=== PATIENT | male | born 1960 | race African-American/Black ===

== ENCOUNTER 2017-01-15 19:15 | Emergency (ER) | payer BC, MEDICARE ==
[~2017-01-15 19:15] MED LIST: ALBU8I INH; LISI10TA3 PO; METF500T PO; NORC10TA2 PO; SIMV40TA PO
[2017-01-15 19:26] VITALS: BP 175/84; PULSE 105; RESP 15; TEMP 98.4; O2SAT 98
[2017-01-15] MEDS ORDERED: BUPIVACAINE HCL PF 0.5% 30 ML VIAL INFIL ONE (21:15)
[2017-01-15] MEDS ORDERED: TETANUS/DIPHTHERIA TOXOID ADULT 0.5 ML VIAL IM ONE (21:15)
--- NOTE | 2017-01-15 21:16 | PD ---
HPI Chief Complaint: Injury Time Seen by Provider: 21:12 Travel History International Travel<30 days: No Contact w/Intl Traveler<30days: No Traveled to known affect area: No History of Present Illness HPI 56-year-old pjkju-[place]je-gl[place]tomg black male presents emergency Department with a injury to his right middle finger. He states that prior to arrival he had his finger accidentally closed in a door. The patient sustained at guillotine type laceration to the distal phalanx. He has not had a tender shot over 5 years. He states the pain is severe. He rates his pain a 10/10. No other injuries. History of vision impairment and diabetes. PFSH Past Medical History Narrative Medical Diabetes, hypertension, hypercholesterolemia, depression, vision loss, chronic pain Cardiovascular Problems: Yes (hypertension) High Cholesterol: Yes Diabetes: Yes Patient Takes Glucophage: Yes Hypertension: Yes Tetanus Vaccination: > 5 Years Past Surgical History Narrative Surgical Eye surgery Social History Alcohol Use: Yes Tobacco Use: No Allergies-Medications (Allergen,Severity, Reaction): Coded Allergies: No Known Allergies (Unverified , 01/15/17) Reported Meds & Prescriptions Reported Meds & Active Scripts Active Lortab (Hydrocodone-Acetaminophen) 5-325 Mg Tab 1 Tab PO Q4H PRN Cephalexin 500 Mg Cap 500 Mg PO Q6H Simvastatin 40 Mg Tab 40 Mg PO HS Lisinopril 10 Mg Tab 10 Mg PO DAILY Metformin (Metformin HCl) 500 Mg Tab 500 Mg PO BIDPC With meals Review of Systems Except as stated in HPI: all other systems reviewed are Neg Musculoskeletal: Positive: Arthralgias, Edema, Pain, No: Myalgias, Limited ROM , Weakness, Cramping Neurologic: No: Weakness, Paresthesia Physical Exam Narrative GENERAL: This is a well-nourished, well-developed patient, in no apparent distress. SKIN: No rashes, ecchymoses or lesions. Warm and dry. HEAD: Atraumatic. Normocephalic. EYES: Patient is vision impaired. EARS: Clear NOSE: Nasal turbinates appear normal. THROAT: Mucosa pink and moist. Airway patent. NECK: Trachea midline. supple, moves head freely. LUNGS: Clear to auscultation. CV: Regular in rhythm. ABDOMEN: Soft nontender. EXT: No clubbing cyanosis. Examination of the right hand reveals a guillotine type laceration to the distal phalanx of the middle finger. The laceration goes through the nail and the nail bed. He has intact gross sensation. No involvement of the DIP. This is not a complete laceration. He has a volar pedicle. This is approximately a 50% partial amputation laceration Data Data Last Documented VS Vital Signs Date Time Temp Pulse Resp B/P Pulse Ox O2 Delivery O2 Flow Rate FiO2 01/15/17 19:26 98.4 105 15 175/84 98 Room Air Orders Bupivacaine Pf 0.5% Inj (Marcaine Pf 0.5 (01/15/17 21:15) Tetanus/Diphtheria Tox Adult (Tetanus/Di (01/15/17 21:15) Finger (Rak0whf) (01/15/17 21:11) Ice/Cold Pack (01/15/17 21:11) Iv Access Insert/Monitor (01/15/17 21:53) Cefazolin 2 Gm Premix (Ancef 2 Gm Premix (01/15/17 22:00) Povidone Iodine 10% Oint (Betadine 10% O (01/15/17 22:45) MDM Medical Decision Making Medical Screen Exam Complete: Yes Emergency Medical Condition: Yes Medical Record Reviewed: Yes Interpretation(s) Last 24 hours Impressions Finger X-Ray 01/15/172110 Signed Impressions: Service Date/Time: Friday, January 15, 2017 21:26 - CONCLUSION: Mildly displaced open fracture involving the distal tuft of the long finger. Leland Ordoñez MD Differential Diagnosis MDM: High Differential diagnoses: Fracture, sprain, strain, dislocation, contusion, neurovascular injury Narrative Course Patient's tetanus status updated. Patient's given a digital block with Marcaine 0.5%. IV access is obtained. Patient's given 2 g of Ancef IV. Patient is given Lortab 5 mg by mouth at time of discharge. The case has been discussed with Dr. Martinez the hand surgeon. He agrees with the treatment plan of follow-up. He has visualized the x-rays. Patient's laceration is close to sutures. He is placed in a large bulky dressing and a splint is applied. Procedures Procedure Narrative LACERATION LOCATION: Right middle finger distal phalanx through the nail bed LENGTH: 2 center meters NUMBER OF STITCHES/BETSY: 8 REPAIR: The area of the laceration was prepped with Betadine and sterilely draped. The laceration was infiltrated with 0.5% Marcaine digital block. The wound was copiously irrigated and explored without evidence of foreign body, tendon injury or neurovascular injury. The nail is sharply debrided. The nail bed is repaired using 5-0 Vicryl sutures. The skin was closed using 5-0 proline. This was a single layer repair. Betadine ointment, Adaptic, Telfa, gauze followed by Coban and, aluminum finger splint and Coban was applied. The patient was advised to keep the dressing clean and dry. Patient tolerated the procedure well. Diagnosis Primary Impression: partial fingertip amputation right middle finger Referrals: Donna Martinez MD 1 week Patient Instructions: General Instructions, Narcotic given in the ED Departure Forms: Tests/Procedures, Work Release Special Instructions: No work 4 days. Additional Instructions: Rest. Strict elevation above the heart at all times. Keep clean and dry. Do not remove the dressing. Keflex and Lortab.. Sutures out in 12-14 days. Follow-up with Dr. Martinez the hand surgeon. Call the office in the morning for an appointment next week Return to the ER for any problems. Med/Other Pt SpecificInfo: Prescription(s) given, Wound Care Scripts Hydrocodone-Acetaminophen (Lortab)5-325 Mg Tab1 Tab PO Q4H PRN (PAIN) #12 TAB Prov:Isaac Miller MD 01/15/17 Cephalexin 500 Mg [id number] Mg PO Q6H #28 CAP Prov:Isaac Miller MD 01/15/17 Disposition: 01 DISCHARGE HOME Condition: Stable Daniel Loja Jan 15, 2017 21:16
--- NOTE | 2017-01-15 21:41 | RADRPT ---
EXAM DATE/TIME: 01/15/2017 21:26 [facility] COMPARISON: No previous studies available for comparison. INDICATIONS : Patient slammed right 3rd digit in door today MEDICAL HISTORY : None. SURGICAL HISTORY : None. ENCOUNTER: Initial ACUITY: 1 day PAIN SCORE: 3/10 LOCATION: Right distal 3rd digit FINDINGS: Mildly displaced distal tuft fracture seen of the long finger. There is an associated deep soft tissu e laceration. CONCLUSION: Mildly displaced open fracture involving the distal tuft of the long finger. Leland Ordoñez MD on January 15, 2017 at 21:38 Board Certified Radiologist. This report was verified electronically.
[2017-01-15] MEDS ORDERED: HYDR-3533 PO (21:55)
[2017-01-15] MEDS ORDERED: CEPH500C PO (21:55)
[2017-01-15] MEDS ORDERED: ceFAZolin 2 GM PREMIX 50 ML IV ONE (22:00)
[2017-01-15] MEDS ORDERED: POVIDONE IODINE 10% OINT 30 GM TUBE TOPICAL ONE (22:45)
[2017-01-15] MEDS ORDERED: ACETAMINOPHEN/HYDROcodone 325 MG/5 MG TAB PO ONE (23:00)
== END 2017-01-16 23:15 | disposition home or self-care (01) ==
LOC: NEPK 19:15
DX: S68.122A Partial traumatic metacarpophalangeal amputation of right middle finger, initial encounter (principal); H54.7 Unspecified visual loss; I10 Essential (primary) hypertension; W23.1XXA Caught, crushed, jammed, or pinched between stationary objects, initial encounter; Z23 Encounter for immunization
CPT/HCPCS: 12001; 73140; 90471; 90714; 96374; 99284; J0690

== ENCOUNTER 2017-06-12 09:50 | Emergency (ER) | payer BC, MEDICARE ==
[~2017-06-12] VITALS: Ht 177.8 cm; Wt 113.0 kg
[~2017-06-12 09:50] MED LIST changes: -ALBU8I INH; +IBUP1TAB7 PO; -NORC10TA2 PO
[2017-06-12 09:55] VITALS: BP 159/94; PULSE 111; RESP 18; TEMP 98.2; O2SAT 96
[2017-06-12] MEDS ORDERED: SODIUM CHLOR 0.9% 1000 ML INJ 1,000 ML IV ONE ×2 (10:27→10:57)
[2017-06-12] MEDS ORDERED: SODIUM CHLORIDE 0.9% FLUSH 10 ML FLUSH IVF PRN (10:30)
--- NOTE | 2017-06-12 10:40 | PD ---
HPI Chief Complaint: Dizziness Time Seen by Provider: 10:14 Travel History International Travel<30 days: No Contact w/Intl Traveler<30days: No Traveled to known affect area: No History of Present Illness HPI The patient is a 56-year-old [place]ak[place] male who presents emergency department for lightheadedness and dizziness. The patient does have a history of hypertension, hyperlipidemia, and xct-[id number]-[id number] diabetes. The patient is run out of most of his medications including lisinopril and simvastatin, has been taking his metformin every "once in a while "for his elevated blood sugars. The patient has an appointment next week with a new physician, Dr. Jacinto. The patient complains of lightheadedness and dizziness , intermittent, sometimes worse with standing, as well as complaints of polyuria. The patient does complain of some generalized weakness, denies any chest pain or shortness of breath. Symptoms are moderate, possibly exacerbated by noncompliance any history of diabetes, and there are no current alleviating factors. PFSH Past Medical History Cardiovascular Problems: Yes (hypertension) High Cholesterol: Yes Diabetes: Yes Hypertension: Yes Social History Alcohol Use: Yes Tobacco Use: No Allergies-Medications (Allergen,Severity, Reaction): Coded Allergies: No Known Allergies (Unverified Adverse Reaction, Unknown, 06/12/17) Reported Meds & Prescriptions Reported Meds & Active Scripts Active Ibuprofen 800 Mg Tab 800 Mg PO Q8H PRN Simvastatin 40 Mg Tab 40 Mg PO HS Lisinopril 10 Mg Tab 10 Mg PO DAILY Metformin (Metformin HCl) 500 Mg Tab 500 Mg PO BIDPC With meals Review of Systems Except as stated in HPI: all other systems reviewed are Neg General / Constitutional: No: Fever Eyes: No: Blurred Vision HENT: Positive: Lightheadedness, No: Headaches Cardiovascular: No: Chest Pain or Discomfort Respiratory: No: Shortness of Breath Gastrointestinal: No: Nausea, Vomiting, Abdominal Pain Musculoskeletal: No: Weakness Neurologic: Positive: Dizziness Physical Exam Narrative GENERAL: Awake, alert, pleasant 56-year-old male who appears his stated age is in no acute respiratory distress. SKIN: Focused skin assessment warm/dry. HEAD: Atraumatic. Normocephalic. EYES: No visible left eye. Wearing glasses. ENT: No nasal bleeding or discharge. Dry mucous membranes. NECK: Trachea midline. No JVD. CARDIOVASCULAR: Regular rate and rhythm. No murmur appreciated. RESPIRATORY: No accessory muscle use. Clear to auscultation. Breath sounds equal bilaterally. GASTROINTESTINAL: Abdomen soft, non-tender, nondistended. No rebound tenderness. MUSCULOSKELETAL: No obvious deformities. No clubbing. No cyanosis. No edema. NEUROLOGICAL: Awake and alert. No obvious cranial nerve deficits. Motor grossly within normal limits. Normal speech. PSYCHIATRIC: Appropriate mood and affect; insight and judgment normal. Data Data Last Documented VS Vital Signs Date Time Temp Pulse Resp B/P (MAP) Pulse Ox O2 Delivery O2 Flow Rate FiO2 06/12/17 12:49 103 21 209/114 (145) 98 Room Air 06/12/17 09:55 98.2 Orders Orders Electrocardiogram (06/12/17 10:27) Complete Blood Count With Diff (06/12/17 10:27) Comprehensive Metabolic Panel (06/12/17 10:27) Beta Hydroxybutyrate (Acetone) (06/12/17 10:27) Urinalysis - C+S If Indicated (06/12/17 10:27) Blood Gas Venous (Vbg) (06/12/17 10:27) Blood Glucose (06/12/17 10:27) Blood Glucose (06/12/17 11:27) Ecg Monitoring (06/12/17 10:27) Iv Access Insert/Monitor (06/12/17 10:27) Oximetry (06/12/17 10:27) NPO (06/12/17 10:27) Sodium Chlor 0.9% 1000 Ml Inj (Ns 1000 M (06/12/17 10:27) Sodium Chlor 0.9% 1000 Ml Inj (Ns 1000 M (06/12/17 10:57) Sodium Chloride 0.9% Flush (Ns Flush) (06/12/17 10:30) Troponin I (06/12/17 10:27) Insulin Aspart Inj (Novolog Inj) (06/12/17 10:45) Insulin Human Regular Inj (Novolin R Inj (06/12/17 10:45) Lisinopril (Prinivil) (06/12/17 13:00) Labs Laboratory Tests Test 06/12/17 10:45 06/12/17 11:55 White Blood Count 7.8 TH/MM3 Red Blood Count 5.65 MIL/MM3 Hemoglobin 16.2 GM/DL Hematocrit 49.7 % Mean Corpuscular Volume 88.0 FL Mean Corpuscular Hemoglobin 28.7 PG Mean Corpuscular Hemoglobin Concent 32.6 % Red Cell Distribution Width 14.0 % Platelet Count 187 TH/MM3 Mean Platelet Volume 9.2 FL Neutrophils (%) (Auto) 72.2 % Lymphocytes (%) (Auto) 21.7 % Monocytes (%) (Auto) 5.2 % Eosinophils (%) (Auto) 0.4 % Basophils (%) (Auto) 0.5 % Neutrophils # (Auto) 5.7 TH/MM3 Lymphocytes # (Auto) 1.7 TH/MM3 Monocytes # (Auto) 0.4 TH/MM3 Eosinophils # (Auto) 0.0 TH/MM3 Basophils # (Auto) 0.0 TH/MM3 CBC Comment DIFF FINAL Differential Comment Urine Color LIGHT-YELLOW Urine Turbidity CLEAR Urine pH 5.5 Urine Specific [place] 1.033 Urine Protein NEG mg/dL Urine Glucose (UA) 1000 mg/dL Urine Ketones 10 mg/dL Urine Occult Blood NEG Urine Nitrite NEG Urine Bilirubin NEG Urine Urobilinogen LESS THAN 2.0 MG/DL Urine Leukocyte Esterase NEG Urine WBC LESS THAN 1 /hpf Urine Mucus FEW /lpf Microscopic Urinalysis Comment CULT NOT INDICATED Blood Gas Puncture Site CENTRAL LINE Blood Gas Patient Temperature 98.6 Venous Blood pH 7.38 Venous Blood Partial Pressure CO2 44 mmHg Venous Blood Partial Pressure O2 48 mmHg Venous Blood HCO3 26 mmol/L Venous Blood Oxygen Saturation 75 % Venous Blood Oxygen Content 17.5 Vol % Venous Blood Base Excess 1.0 mmol/L Blood Gas Inspired Oxygen 21 % Blood Urea Nitrogen 18 MG/DL Creatinine 1.08 MG/DL Random Glucose 383 MG/DL Total Protein 7.7 GM/DL Albumin 3.6 GM/DL Calcium Level 9.2 MG/DL Alkaline Phosphatase 97 U/L Aspartate Amino Transf (AST/SGOT) 26 U/L Alanine Aminotransferase (ALT/SGPT) 58 U/L Total Bilirubin 0.5 MG/DL Sodium Level 133 MEQ/L Potassium Level 4.8 MEQ/L Chloride Level 99 MEQ/L Carbon Dioxide Level 23.7 MEQ/L Anion Gap 10 MEQ/L Estimat Glomerular Filtration Rate 86 ML/MIN Troponin I LESS THAN 0.02 NG/ML B-Hydroxybutyrate 1.00 MMOL/L MDM Medical Decision Making Medical Screen Exam Complete: Yes Emergency Medical Condition: Yes Medical Record Reviewed: Yes Interpretation(s) EKG reveals normal sinus rhythm with a rate of 96. Nonspecific ST-T wave changes. Laboratory Tests Test 06/12/17 10:45 06/12/17 11:55 White Blood Count 7.8 TH/MM3 Red Blood Count 5.65 MIL/MM3 Hemoglobin 16.2 GM/DL Hematocrit 49.7 % Mean Corpuscular Volume 88.0 FL Mean Corpuscular Hemoglobin 28.7 PG Mean Corpuscular Hemoglobin Concent 32.6 % Red Cell Distribution Width 14.0 % Platelet Count 187 TH/MM3 Mean Platelet Volume 9.2 FL Neutrophils (%) (Auto) 72.2 % Lymphocytes (%) (Auto) 21.7 % Monocytes (%) (Auto) 5.2 % Eosinophils (%) (Auto) 0.4 % Basophils (%) (Auto) 0.5 % Neutrophils # (Auto) 5.7 TH/MM3 Lymphocytes # (Auto) 1.7 TH/MM3 Monocytes # (Auto) 0.4 TH/MM3 Eosinophils # (Auto) 0.0 TH/MM3 Basophils # (Auto) 0.0 TH/MM3 CBC Comment DIFF FINAL Differential Comment Urine Color LIGHT-YELLOW Urine Turbidity CLEAR Urine pH 5.5 Urine Specific [place] 1.033 Urine Protein NEG mg/dL Urine Glucose (UA) 1000 mg/dL Urine Ketones 10 mg/dL Urine Occult Blood NEG Urine Nitrite NEG Urine Bilirubin NEG Urine Urobilinogen LESS THAN 2.0 MG/DL Urine Leukocyte Esterase NEG Urine WBC LESS THAN 1 /hpf Urine Mucus FEW /lpf Microscopic Urinalysis Comment CULT NOT INDICATED Blood Gas Puncture Site CENTRAL LINE Blood Gas Patient Temperature 98.6 Venous Blood pH 7.38 Venous Blood Partial Pressure CO2 44 mmHg Venous Blood Partial Pressure O2 48 mmHg Venous Blood HCO3 26 mmol/L Venous Blood Oxygen Saturation 75 % Venous Blood Oxygen Content 17.5 Vol % Venous Blood Base Excess 1.0 mmol/L Blood Gas Inspired Oxygen 21 % Blood Urea Nitrogen 18 MG/DL Creatinine 1.08 MG/DL Random Glucose 383 MG/DL Total Protein 7.7 GM/DL Albumin 3.6 GM/DL Calcium Level 9.2 MG/DL Alkaline Phosphatase 97 U/L Aspartate Amino Transf (AST/SGOT) 26 U/L Alanine Aminotransferase (ALT/SGPT) 58 U/L Total Bilirubin 0.5 MG/DL Sodium Level 133 MEQ/L Potassium Level 4.8 MEQ/L Chloride Level 99 MEQ/L Carbon Dioxide Level 23.7 MEQ/L Anion Gap 10 MEQ/L Estimat Glomerular Filtration Rate 86 ML/MIN Troponin I LESS THAN 0.02 NG/ML B-Hydroxybutyrate 1.00 MMOL/L Differential Diagnosis Differential diagnosis includes DKA, hyperglycemia, dehydration, electrolyte abnormality, noncompliance, hypertension, hypertensive urgency, hypertensive emergency. Narrative Course IV was established, labs are drawn and sent, and the patient was placed on cardiac telemetry monitoring and continuous pulse oximetry monitoring. EKG was ordered and interpreted. The patient was administered 2 L of IV fluids. VBG was obtained. VBG reveals pH is 7.38, no evidence of acidosis. The patient's blood sugar initially was in the 500s, he received IV insulin and regular insulin subcutaneously. The patient's LFTs and BUN/creatinine are unremarkable. Beta hydroxy was 1.0. Anion gap is normal. The patient is not in DKA. The patient's symptoms did improve. He will be discharged on his lisinopril, simvastatin, and metformin. He is advised to follow-up with his primary physician and return if symptoms worsen or progress. Diagnosis Primary Impression: Hyperglycemia Additional Impressions: Dehydration Hypertension Qualified Codes: I10 - Essential (primary) hypertension Patient Instructions: General Instructions Additional Instructions: Please provide the patient a copy of his labs at discharge. Follow-up with your primary physician. Return if symptoms worsen or progress. Med/Other Pt SpecificInfo: Prescription(s) given Scripts Simvastatin (Simvastatin) 40 Mg Tab 40 MG PO HS for Cholesterol Management, #30 TAB 5 Refills Prov: Micky Morgan MD 06/12/17 Lisinopril (Lisinopril) 10 Mg Tab 10 MG PO DAILY, #30 TAB 5 Refills Prov: Micky Morgan MD 06/12/17 Metformin (Metformin) 500 Mg Tab 500 MG PO BIDPC for Blood Sugar Management, #60 TAB 5 Refills With meals Prov: Micky Morgan MD 06/12/17 Disposition: 01 DISCHARGE HOME Condition: Stable Micky Morgan MD Jun 12, 2017 10:40
[2017-06-12] MEDS ORDERED: INSULIN HUMAN REGULAR 1,000 UNITS/10 ML VIAL IV PUSH ONE (10:45)
[2017-06-12] MEDS ORDERED: INSULIN ASPART 1,000 UNITS/10 ML VIAL SQ ONE (10:45)
[2017-06-12 10:53] LABS: BLOOD GAS VENOUS HCO3 26 mmol/L (22-26); BLOOD GAS VENOUS O2 CONTENT 17.5 Vol % (9.0-17.0); BLOOD GAS VENOUS O2 HGB SAT 75 % (70-76); BLOOD GAS VENOUS PCO2 44 mmHg (44-48); BLOOD GAS VENOUS PO2 48 mmHg (35-40); BLOOD GAS VENOUS pH 7.38 (7.360-7.400); CRITICAL VALUE NO; DRAW SITE CENTRAL LINE; FIO2 21 %; STAT YES; TEMP CORR TO 98.6
[2017-06-12 11:04] LABS: AUTOMATED NEUTROPHIL # 5.7 TH/MM3 (1.8-7.7); BASOPHIL % 0.5 % (0.0-2.0); EOSINOPHIL % 0.4 % (0.0-4.0); HEMATOCRIT 49.7 % (39.0-51.0); HEMO FLAGS DIFF FINAL; LYMPH % 21.7 % (9.0-44.0); LYMPHOCYTE # 1.7 TH/MM3 (1.0-4.8); MEAN CORPUSCULAR HEMOGLOBIN 28.7 PG (27.0-34.0); MEAN CORPUSCULAR HGB CONC 32.6 % (32.0-36.0); MONO % 5.2 % (0.0-8.0); NEUT % 72.2 % (16.0-70.0); PLATELET COUNT 187 TH/MM3 (150-450); RED BLOOD COUNT 5.65 MIL/MM3 (4.50-5.90); WHITE BLOOD COUNT 7.8 TH/MM3 (4.0-11.0)
[2017-06-12 11:09] LABS: BLOOD, URINE NEG (NEG); GLUCOSE,URINE 1000 mg/dL (NEG); KETONE, URINE 10 mg/dL (NEG); MUCUS URINE FEW /lpf (OCC); NITRITE,URINE NEG (NEG); PH, URINE 5.5 (5.0-8.5); URINE COLOR LIGHT-YELLOW (YELLW/STRAW)
[2017-06-12 11:10] LABS: COMMENT (UR) CULT NOT INDICATED; CULTURE IF INDICATED CULT NOT INDICATED
[2017-06-12 12:31] LABS: ALT (GPT) 58 U/L (12-78); TOTAL BILIRUBIN ADULT 0.5 MG/DL (0.2-1.0)
[2017-06-12 12:49] VITALS: BP 209/114; PULSE 103; RESP 21; O2SAT 98
[2017-06-12] MEDS ORDERED: LISINOPRIL 10 MG TAB PO ONE (13:00)
[2017-06-12 13:07] LABS: ANION GAP 10 MEQ/L (5-15); AST (GOT) 26 U/L (15-37); BICARBONATE 23.7 MEQ/L (21.0-32.0); BLOOD UREA NITROGEN 18 MG/DL (7-18); CHLORIDE 99 MEQ/L (98-107); SODIUM (NA) 133 MEQ/L (136-145)
[2017-06-12 13:08] LABS: POTASSIUM 4.8 MEQ/L (3.5-5.1)
[2017-06-12 13:13] LABS: GLOMERULAR FILTRATION RATE 86 ML/MIN (>89)
[2017-06-12 13:15] LABS: ALKALINE PHOSPHATASE 97 U/L (45-117)
[2017-06-12] MEDS ORDERED: METF500T PO (13:41)
[2017-06-12] MEDS ORDERED: SIMV40TA PO (13:41)
[2017-06-12] MEDS ORDERED: LISI10TA3 PO (13:41)
[2017-06-12 14:03] VITALS: BP 214/120
--- NOTE | 2017-06-13 18:27 | EKG ---
Date Performed: 06/12/2017 Time Performed: 11:07:22 PTAGE: 56 years EKG: Sinus rhythm NONSPECIFIC ST & T-WAVE ABNORMALITY ABNORMAL ECG NO PREVIOUS TRACING DOCTOR: Stephen Bravo Interpretating Date/Time 06/13/2017 18:18:41
== END 2017-06-12 14:38 | disposition home or self-care (01) ==
LOC: NEPC 09:50
DX: E11.65 Type 2 diabetes mellitus with hyperglycemia (principal); E86.0 Dehydration; I10 Essential (primary) hypertension; R42 Dizziness and giddiness; E78.00 Pure hypercholesterolemia, unspecified; R94.31 Abnormal electrocardiogram [ECG] [EKG]; Z79.899 Other long term (current) drug therapy
CPT/HCPCS: 80053; 81001; 82010; 82805; 84484; 85025; 93005; 96361; 96372; 96374; 99284; J1815; J7030